=== PATIENT | male | born 1975 ===

== ENCOUNTER 2022-08-01 07:25 | Emergency (ER) | payer BC ==
[2022-08-01] MEDS ORDERED: Ketorolac 30 MG/ML SDV IM ONE (08:12)
[2022-08-01 08:22] LABS: APPEARANCE,URINE CLEAR (CLEAR); BILIRUBIN,URINE NEGATIVE (NEGATIVE); COLOR,URINE YELLOW (YELLOW); GLUCOSE,URINE NEGATIVE (NEGATIVE); KETONES,URINE NEGATIVE (NEGATIVE); LEUKOCYTE ESTERASE,URINE NEGATIVE (NEGATIVE); NITRITE,URINE NEGATIVE (NEGATIVE); OCCULT BLOOD,URINE NEGATIVE (NEGATIVE); PH,URINE 5.5 (5.0-8.0); PROTEIN,URINE NEGATIVE (NEGATIVE); UROBILINOGEN,URINE 0.2 EU/dL (0.2-1.0)
[2022-08-01 08:28] LABS: AMORPHOUS SEDIMENT,URINE RARE; BACTERIA,URINE NOT SEEN; EPITHELIAL CELLS,URINE NOT SEEN; MUCUS,URINE NOT SEEN; RBC,URINE NOT SEEN (0-5); WBC,URINE 0-5 (0-5)
[2022-08-01] MEDS ORDERED: Ondansetron 4 MG/2 ML SDV IVPUSH PRN (08:57)
[2022-08-01] MEDS ORDERED: HYDROmorphone 1 MG/ML Syringe IVPUSH ONE (08:57)
[2022-08-01] MEDS ORDERED: oxyCODONE 5 MG Tab PO ONE (09:42)
[2022-08-01] MEDS ORDERED: Tamsulosin 0.4 MG Cap.ER PO ONE (09:42)
== END 2022-08-01 10:58 | disposition home or self-care (01) ==
LOC: JP.ED 07:25
DX: N13.2 Hydronephrosis with renal and ureteral calculous obstruction (principal)
CPT/HCPCS: 36415; 74176; 80048; 81001; 96372; 99284; A9270; J1885; J2405

== ENCOUNTER 2024-09-10 15:58 | Emergency (ER) | payer BC | END 2024-09-10 18:25 | disposition home or self-care (01) | LOC: JP.ED 15:58 | DX: R55 Syncope and collapse (principal); I10 Essential (primary) hypertension; K21.9 Gastro-esophageal reflux disease without esophagitis; Z86.16 Personal history of COVID-19; Z79.899 Other long term (current) drug therapy | CPT/HCPCS: 93005; 93010; 96360; 99283; 99284; J7030 ==